=== PATIENT | male | born 1955 | race Caucasian/White ===

== ENCOUNTER 2023-04-22 15:00 | Emergency (ER) | payer SELFPAY ==
[2023-04-22] MEDS ORDERED: Sodium Chloride 0.9% 10 ML Syringe FLUSH PRN (15:12)
[2023-04-22] MEDS ORDERED: ceFAZolin 1 GM in Sodium Chloride 0.9% 50 ML IV ONE (15:13)
[2023-04-22] MEDS ORDERED: Diphtheria,Pertussis(Acell),Tetanus Vaccine 0.5 ML Syringe IM ONE (15:14)
[2023-04-22] MEDS ORDERED: Lidocaine 1% 10 ML MDV INJECT ONE (16:08)
[2023-04-22] MEDS ORDERED: LORazepam 2 MG/ML SDV IVPUSH ONE (16:19)
[2023-04-22] MEDS ORDERED: LORazepam 2 MG/ML SDV IVPUSH PRN (16:22)
== END 2023-04-22 18:45 | disposition home or self-care (01) ==
LOC: JD.ED 15:00
DX: S51.802A Unspecified open wound of left forearm, initial encounter (principal); E78.00 Pure hypercholesterolemia, unspecified; Z79.899 Other long term (current) drug therapy; Z23 Encounter for immunization; W34.00XA Accidental discharge from unspecified firearms or gun, initial encounter
CPT/HCPCS: 12002; 73090; 90471; 90715; 96365; 99284; J0690; J3490; 99283